=== PATIENT | female | born 1960 | race Two or more races ===

== ENCOUNTER 2017-09-21 09:25 | Outpatient (CLI) | payer OTHER ==
[~2017-09-21 09:25] MED LIST: COZAAR50 MG; GILPHEX TR TAB1 EACH PO; LEVSIN/SL0.125 MG SL; NABUMETONE750 MG PO; ZITHROMAX500 MG PO; ZYNCOF 20-400120 ML PO
== END 2017-09-21 09:41 | disposition home or self-care (01) ==
LOC: TOM 09:25
DX: D13.6 Benign neoplasm of pancreas (principal); K86.2 Cyst of pancreas
CPT/HCPCS: 74160; Q9965

== ENCOUNTER 2017-10-25 12:00 | Outpatient (CLI) | payer OTHER | END 2017-10-25 12:01 | disposition home or self-care (01) | LOC: LAB 12:00 | DX: E78.2 Mixed hyperlipidemia (principal); E11.65 Type 2 diabetes mellitus with hyperglycemia; E03.8 Other specified hypothyroidism; D68.8 Other specified coagulation defects ==

== ENCOUNTER 2017-11-14 12:31 | Outpatient (CLI) | payer OTHER | END 2017-11-14 12:32 | disposition home or self-care (01) | LOC: LAB 12:31 | DX: R74.8 Abnormal levels of other serum enzymes (principal); B18.2 Chronic viral hepatitis C; B19.10 Unspecified viral hepatitis B without hepatic coma ==

== ENCOUNTER 2018-01-17 12:04 | Outpatient (CLI) | payer OTHER | END 2018-01-17 12:12 | disposition home or self-care (01) | LOC: LAB 12:04 | DX: R10.84 Generalized abdominal pain (principal); K29.70 Gastritis, unspecified, without bleeding; D50.8 Other iron deficiency anemias; R63.4 Abnormal weight loss; G30.9 Alzheimer's disease, unspecified ==

== ENCOUNTER 2018-03-06 16:47 | Outpatient (CLI) | payer OTHER | END 2018-03-06 16:56 | disposition home or self-care (01) | LOC: LAB 16:47 | DX: D55.0 Anemia due to glucose-6-phosphate dehydrogenase [G6PD] deficiency (principal) ==

== ENCOUNTER 2018-05-31 10:15 | Outpatient (CLI) | payer OTHER | END 2018-05-31 10:20 | disposition home or self-care (01) | LOC: LAB 10:15 | DX: Z01.419 Encounter for gynecological examination (general) (routine) without abnormal findings (principal); E03.8 Other specified hypothyroidism; E16.1 Other hypoglycemia; E55.9 Vitamin D deficiency, unspecified; E78.49 Other hyperlipidemia; N39.0 Urinary tract infection, site not specified; D64.89 Other specified anemias; N60.21 Fibroadenosis of right breast; I10 Essential (primary) hypertension ==

== ENCOUNTER 2018-06-14 17:01 | Outpatient (CLI) | payer OTHER | END 2018-06-14 17:07 | disposition home or self-care (01) | LOC: LAB 17:01 | DX: E03.8 Other specified hypothyroidism (principal); E55.9 Vitamin D deficiency, unspecified; N39.0 Urinary tract infection, site not specified; E16.1 Other hypoglycemia; E78.49 Other hyperlipidemia ==

== ENCOUNTER 2018-07-02 15:38 | Outpatient (CLI) | payer OTHER | END 2018-07-02 15:41 | disposition home or self-care (01) | LOC: RAD 15:38 | DX: M85.2 Hyperostosis of skull (principal) ==

== ENCOUNTER 2018-09-27 16:46 | Emergency (ER) | payer OTHER ==
[~2018-09-27] VITALS: Ht 160 cm; Wt 81.6 kg
[2018-09-28] MEDS ORDERED: INTESTINEX680 M1 PO (03:28)
[2018-09-28] MEDS ORDERED: CELECOXIB100 MG PO (03:28)
[2018-09-28] MEDS ORDERED: LEVSIN/SL0.125 MG SL (03:28)
[2018-09-28] MEDS ORDERED: PEPCID AC20 MG PO (03:28)
== END 2018-09-28 04:12 | disposition home or self-care (01) ==
LOC: ER 16:46
DX: R10.11 Right upper quadrant pain (principal); R07.81 Pleurodynia

== ENCOUNTER → 2018-10-22 09:41 | Outpatient (CLI) | payer OTHER ==
[~2018-10-22 09:41] MED LIST changes: +CELECOXIB100 MG PO; +INTESTINEX680 M1 PO; +PEPCID AC20 MG PO
== END | disposition home or self-care (01) ==
LOC: LAB 09:41
DX: E03.8 Other specified hypothyroidism (principal); E78.2 Mixed hyperlipidemia; Z12.11 Encounter for screening for malignant neoplasm of colon

== ENCOUNTER 2018-11-27 14:16 | Outpatient (CLI) | payer OTHER | END 2018-11-27 14:19 | disposition home or self-care (01) | LOC: NUCLEAR 14:16 | DX: M81.0 Age-related osteoporosis without current pathological fracture (principal); R30.0 Dysuria; N76.0 Acute vaginitis ==

== ENCOUNTER 2018-11-27 15:14 | Outpatient (CLI) | payer OTHER | END 2018-11-27 15:22 | disposition home or self-care (01) | LOC: LAB 15:14 | DX: M81.0 Age-related osteoporosis without current pathological fracture (principal); R30.0 Dysuria; N76.0 Acute vaginitis ==

== ENCOUNTER → 2019-07-10 13:00 | Outpatient (CLI) | payer OTHER | END | disposition home or self-care (01) | LOC: LAB 13:00 | DX: D64.89 Other specified anemias (principal); E78.00 Pure hypercholesterolemia, unspecified; E03.8 Other specified hypothyroidism; E55.9 Vitamin D deficiency, unspecified; R94.5 Abnormal results of liver function studies; I10 Essential (primary) hypertension; N39.0 Urinary tract infection, site not specified; E11.65 Type 2 diabetes mellitus with hyperglycemia; K70.0 Alcoholic fatty liver; E11.69 Type 2 diabetes mellitus with other specified complication; Z12.11 Encounter for screening for malignant neoplasm of colon ==

== ENCOUNTER → 2020-03-24 12:31 | Outpatient (CLI) | payer OTHER | END | disposition home or self-care (01) | LOC: LAB 12:31 | PROVIDERS: ATTEND Internal Medicine | DX: I10 Essential (primary) hypertension (principal); E11.9 Type 2 diabetes mellitus without complications; E78.00 Pure hypercholesterolemia, unspecified; E03.8 Other specified hypothyroidism; E55.9 Vitamin D deficiency, unspecified ==

== ENCOUNTER → 2020-08-10 11:43 | Outpatient (CLI) | payer OTHER | END | disposition home or self-care (01) | LOC: LAB 11:43 | PROVIDERS: ATTEND Specialist | DX: E11.65 Type 2 diabetes mellitus with hyperglycemia (principal); Z12.11 Encounter for screening for malignant neoplasm of colon; E03.1 Congenital hypothyroidism without goiter; E55.9 Vitamin D deficiency, unspecified; N39.8 Other specified disorders of urinary system; K75.81 Nonalcoholic steatohepatitis (NASH); E64.9 Sequelae of unspecified nutritional deficiency; E11.21 Type 2 diabetes mellitus with diabetic nephropathy ==

== ENCOUNTER 2020-08-10 13:14 | Outpatient (CLI) | payer OTHER | END 2020-08-10 13:19 | disposition home or self-care (01) | LOC: RAD 13:14 | PROVIDERS: ATTEND Specialist | DX: R07.89 Other chest pain (principal); J45.998 Other asthma ==

== ENCOUNTER 2020-09-01 13:31 | Outpatient (CLI) | payer OTHER | END 2020-09-01 13:35 | disposition home or self-care (01) | LOC: LAB 13:31 | PROVIDERS: ATTEND Specialist | DX: E11.65 Type 2 diabetes mellitus with hyperglycemia (principal); Z12.11 Encounter for screening for malignant neoplasm of colon; E03.8 Other specified hypothyroidism; E55.9 Vitamin D deficiency, unspecified; N39.0 Urinary tract infection, site not specified; K75.81 Nonalcoholic steatohepatitis (NASH); D64.89 Other specified anemias; E11.21 Type 2 diabetes mellitus with diabetic nephropathy ==

== ENCOUNTER 2020-10-06 12:04 | Outpatient (CLI) | payer OTHER | END 2020-10-06 12:18 | disposition home or self-care (01) | LOC: SONOGRAMA 12:04 | PROVIDERS: ATTEND Internal Medicine Gastroenterology | DX: R10.84 Generalized abdominal pain (principal) ==

== ENCOUNTER 2020-12-21 10:58 | Outpatient (CLI) | payer OTHER | END 2020-12-21 11:07 | disposition home or self-care (01) | LOC: LAB 10:58 | PROVIDERS: ATTEND Specialist | DX: E11.65 Type 2 diabetes mellitus with hyperglycemia (principal); E78.2 Mixed hyperlipidemia; N39.0 Urinary tract infection, site not specified; K75.81 Nonalcoholic steatohepatitis (NASH) ==

== ENCOUNTER 2021-03-22 13:03 | Outpatient (CLI) | payer OTHER | END 2021-03-22 13:08 | disposition home or self-care (01) | LOC: LAB 13:03 | PROVIDERS: ATTEND Specialist | DX: D64.89 Other specified anemias (principal); D51.1 Vitamin B12 deficiency anemia due to selective vitamin B12 malabsorption with proteinuria; D51.0 Vitamin B12 deficiency anemia due to intrinsic factor deficiency; K75.81 Nonalcoholic steatohepatitis (NASH); E03.8 Other specified hypothyroidism; I10 Essential (primary) hypertension; E11.9 Type 2 diabetes mellitus without complications; E78.00 Pure hypercholesterolemia, unspecified; E55.9 Vitamin D deficiency, unspecified ==

== ENCOUNTER → 2021-08-03 12:26 | Outpatient (CLI) | payer OTHER | END | disposition home or self-care (01) | LOC: LAB 12:26 | PROVIDERS: ATTEND Specialist | DX: E78.00 Pure hypercholesterolemia, unspecified (principal); E03.9 Hypothyroidism, unspecified; E11.21 Type 2 diabetes mellitus with diabetic nephropathy; N39.9 Disorder of urinary system, unspecified; E78.2 Mixed hyperlipidemia; E11.65 Type 2 diabetes mellitus with hyperglycemia; Z12.11 Encounter for screening for malignant neoplasm of colon; D64.9 Anemia, unspecified; J45.998 Other asthma ==

== ENCOUNTER 2022-01-16 16:19 | Outpatient (CLI) | payer OTHER | END 2022-01-16 16:24 | disposition home or self-care (01) | LOC: LAB 16:19 | DX: U07.1 COVID-19 (principal); B34.1 Enterovirus infection, unspecified ==

== ENCOUNTER 2022-01-20 07:21 | Outpatient (CLI) | payer OTHER | END 2022-01-20 07:24 | disposition home or self-care (01) | LOC: NUCLEAR 07:21 | PROVIDERS: ATTEND Internal Medicine | DX: R07.9 Chest pain, unspecified (principal); I11.9 Hypertensive heart disease without heart failure; E78.2 Mixed hyperlipidemia; Z88.0 Allergy status to penicillin; Z88.2 Allergy status to sulfonamides; Z88.5 Allergy status to narcotic agent | CPT/HCPCS: 78452; 93017; A9500 ==

== ENCOUNTER 2022-05-25 15:22 | Outpatient (CLI) | payer OTHER | END 2022-05-25 15:29 | disposition home or self-care (01) | LOC: RAD 15:22 | PROVIDERS: ATTEND Specialist | DX: J45.998 Other asthma (principal); J01.90 Acute sinusitis, unspecified ==

== ENCOUNTER 2022-05-29 08:48 | Outpatient (CLI) | payer OTHER | END 2022-05-29 08:49 | disposition home or self-care (01) | LOC: LAB 08:48 | DX: E11.65 Type 2 diabetes mellitus with hyperglycemia (principal); N39.0 Urinary tract infection, site not specified; J45.998 Other asthma; D64.9 Anemia, unspecified ==

== ENCOUNTER 2022-06-30 14:19 | Outpatient (CLI) | payer OTHER | END 2022-06-30 14:37 | disposition home or self-care (01) | LOC: RAD 14:19 | PROVIDERS: ATTEND Specialist | DX: M54.9 Dorsalgia, unspecified (principal); M16.0 Bilateral primary osteoarthritis of hip; M17.0 Bilateral primary osteoarthritis of knee; M51.36 Other intervertebral disc degeneration, lumbar region; M47.812 Spondylosis without myelopathy or radiculopathy, cervical region; M19.041 Primary osteoarthritis, right hand; S93.401A Sprain of unspecified ligament of right ankle, initial encounter ==

== ENCOUNTER 2022-07-05 12:53 | Outpatient (CLI) | payer OTHER | END 2022-07-05 12:54 | disposition home or self-care (01) | LOC: LAB 12:53 | PROVIDERS: ATTEND Specialist | DX: E11.69 Type 2 diabetes mellitus with other specified complication (principal); E11.21 Type 2 diabetes mellitus with diabetic nephropathy; D64.89 Other specified anemias; E03.8 Other specified hypothyroidism; N25.81 Secondary hyperparathyroidism of renal origin; N39.9 Disorder of urinary system, unspecified; Z13.220 Encounter for screening for lipoid disorders; R19.5 Other fecal abnormalities ==